=== PATIENT | female | born 1980 ===

== ENCOUNTER 2021-02-19 23:05 | Emergency (ER) | payer OTHER, SELFPAY ==
[2021-02-19 23:37] VITALS: BP 145/83; PULSE 99; RESP 20; TEMP 37.1; O2SAT 99; BMI 27.3
[2021-02-20 01:12] LABS: COVID-19 Test Positive (Negative)
--- NOTE | 2021-02-20 04:03 | ED_ITS ---
HPI - General Adult General Chief complaint: Upper Respiratory Symptoms Stated complaint: body aches, migraine Time Seen by Provider: 02/20/21 04:03 Source: family Limitations: other (Intellectual disability) History of Present Illness HPI narrative: This is a 40-year-old female who is here with a guardian. The patient has for the last few days had sore throat, fever, mild cough. She has not had any known vomiting or diarrhea. No other family member is currently hospitalized with COVID. The patient has received Giveit100 vaccine x2. Related Data Allergies Allergy/AdvReac Type Severity Reaction Status Date / Time No Known Allergies Allergy Verified 02/19/21 23:41 Review of Systems Review of Systems: Yes Other (Limited by intellectual disability) Constitutional: Constitutional: Reports fatigue and Reports fever(s) ENT: Reports as per HPI, Reports nasal discharge and Reports sore throat Cardiovascular: Cardiovascular: Denies dyspnea Respiratory: Respiratory: Reports cough and Denies dyspnea Gastrointestinal: Gastrointestinal: Denies abdominal pain, Denies diarrhea, Denies nausea and Denies vomiting Neurologic: Denies Sensory deficit (Neuro) Endocrine: Endocrine: Reports fatigue [facility] Social History Social History Advance Directives: No Advance Directives Information Provided: Yes Patient : No Physical Exam Vital Signs: Vital Signs: Last Vital Signs Temp 98.8 F 02/19/21 23:37 Pulse 99 02/19/21 23:37 Resp 20 02/19/21 23:37 BP 145/83 H 02/19/21 23:37 Pulse Ox 99 02/19/21 23:37 BMI result Body Mass Index 27.3 Const: General: cooperative, no acute distress and alert Orientation/consciousness: patient oriented x3 HENMT: Head: Yes normal to inspection Eyes: General: appearance normal, both eyes and all related structures Eyelids: Yes eyelids normal Conjunctivae: conjunctivae normal Pupils: Equal, round and reactive pupils present Neck: Neck: Yes normal visual inspection and Yes supple Chest: Chest palpation & inspection: normal inspection of the chest Resp: Effort & Inspection: normal respiratory effort Auscultation: clear to auscultation bilaterally Cardio: Rate: regular rate Rhythm: regular rhythm Heart sounds: S1 normal heart sound present, S2 normal heart sound present, no gallops, no murmurs and no rubs GI: Palpation (GI): Soft to palpation, nontender and Other GI palpation findings present (Non-distended) Auscultation: normal bowel sounds Skin: General skin exam: no rashes or lesions noted Neuro: General: patient oriented x3, no focal motor deficits and CN's II-XI intact bilaterally Cranial nerves: Yes Equal, round and reactive pupils present Cognition (Neuro): normal cognition Motor exam (neuro): 5/5 motor strength present throughout Sensory Exam: No Sensory deficit (Neuro) Extrem: General: Yes normal to inspection and Yes no pedal edema Psych: Appearance: grossly normal Affect: normal affect Medical Decision Making MDM Narrative Medical decision making narrative: Patient in no distress, has had symptoms consistent with COVID for few days, has had contacts at home who have had COVID. COVID test is positive here tonight. Patient has normal vital signs, normal pulse oximetry, clear lungs, is safe for outpatient treatment Lab Data Labs: Lab Results 02/20/21 Range/Units 00:55 COVID-19 (RICK) Positive A (Negative) COVID-19 Clin Com See Note Discharge Plan Discharge Clinical Impression: COVID-19 Patient Disposition: Home, Self-Care Instructions: COVID-19 (Coronavirus Disease 2019) (ED) Additional Instructions: Drink plenty of fluids. Use Tylenol for fever or aches. Use cough medicine such as Robitussin DM as needed for cough. Return for any new or worsened s ymptoms such as increased shortness of breath, high fever, inability to hold down fluids. Quarantine at home for 10 days. Make sure all household contacts are tested
== END 2021-02-20 04:31 | disposition home or self-care (01) ==
PROVIDERS: Emergency Provider Emergency Medicine
DX: U07.1 COVID-19 (principal); M79.10 Myalgia, unspecified site; G43.909 Migraine, unspecified, not intractable, without status migrainosus
CPT/HCPCS: 36415; 87635; 99283

== ENCOUNTER 2022-04-30 08:41 | Outpatient (REF) | payer OTHER, SELFPAY ==
[2022-04-30 08:52] LABS: MANUAL DIFF FLAG NO
[2022-04-30 09:57] LABS: Basophils Absolute Auto 0.1 X10*3/uL (0.0-0.2); Basophils Percent Auto 0.9 % (0-2); Eosinophils Absolute Auto 0.2 X10*3/uL (0.0-0.4); Eosinophils Percent Auto 2.9 % (0-4); Hematocrit 38.5 % (37.0-47.0); Hemoglobin 12.4 g/dl (12.0-16.0); Imm Gran Abs Auto 0.01 X10*3/uL (0.00-0.03); Imm Gran Pct Auto 0.1 % (0.0-0.4); Lymphocytes Absolute Auto 3.4 X10*3/uL (1.2-4.9); Lymphocytes Percent Auto 44.5 % (20-40); Mean Corpuscular HGB Conc 32.2 g/dl (31.0-35.0); Mean Corpuscular Hemoglobin 29.1 pg (27.0-33.0); Mean Corpuscular Volume 90.4 fL (80.0-98.0); Mean Platelet Volume 10.8 fL (9.4-12.3); Monocytes Absolute Auto 0.7 X10*3/uL (0.1-1.2); Monocytes Percent Auto 8.9 % (2-11); Neutrophils Absolute Auto 3.3 x10*3/uL (2.0-8.3); Neutrophils Percent Auto 42.7 % (45-73); Platelet Count 271 X10*3/uL (160-400); Red Blood Count 4.26 X10*6/uL (4.20-5.50); Red Cell Distribution Width 14.2 % (11.0-16.0); White Blood Count 7.7 X10*3/uL (4.8-10.8)
[2022-04-30 10:44] LABS: Alanine Aminotransferase 12 U/L (0-31); Albumin Level 4.3 g/dL (3.5-5.0); Alkaline Phosphatase 71 U/L (39-117); Anion Gap 13 (12-20); Aspartate Amino Transferase 24 U/L (5-31); Bilirubin Total 0.5 mg/dL (0.0-1.0); Blood Urea Nitrogen 13 mg/dL (9-16); Calcium 9.1 mg/dL (8.4-10.2); Carbon Dioxide 26 mmol/L (22-29); Chloride 105 mmol/L (96-108); Cholesterol 204 mg/dL; Estimated Glomerular Filt Rate > 60; Glucose Random 81 mg/dL (60-115); HDL Cholesterol 55 mg/dL; LDL Cholesterol Calculated 135 mg/dl; Potassium 4.6 mmol/L (3.3-5.1); Sodium 139 mmol/L (135-145); Total Protein 8.2 g/dL (6.5-8.0); Triglycerides 73 mg/dL
[2022-04-30 10:49] LABS: TSH reflex Free T4 8.37 uIU/mL (0.32-4.0)
[2022-04-30 11:30] LABS: Estimated Average Glucose 108 mg/dL; Hemoglobin A1c % 5.4 %
[2022-04-30 16:34] LABS: Free T4 (Free Thyroxine) 0.67 ng/dL (0.71-1.85)
== END 2022-04-30 08:42 | disposition home or self-care (01) ==
LOC: HO.LAB 08:41
PROVIDERS: Visit Provider Nurse Practitioner Family
DX: Z13.1 Encounter for screening for diabetes mellitus (principal); Z13.29 Encounter for screening for other suspected endocrine disorder; Z13.220 Encounter for screening for lipoid disorders; Z13.0 Encounter for screening for diseases of the blood and blood-forming organs and certain disorders involving the immune mechanism
CPT/HCPCS: 36415; 80053; 80061; 83036; 84439; 84443; 85025

== ENCOUNTER 2022-07-03 10:17 | Outpatient (REF) | payer OTHER, SELFPAY | END 2022-07-03 10:18 | disposition home or self-care (01) | LOC: HO.LNP 10:17 | PROVIDERS: PCP Nurse Practitioner Family; Visit Provider Advanced Practice Midwife | DX: Z13.89 Encounter for screening for other disorder (principal) ==

== ENCOUNTER 2022-07-03 11:17 | Outpatient (REF) | payer OTHER, SELFPAY ==
[2022-07-03 17:52] LABS: CT PCR NOT DETECTED (Not Detect.); NG PCR NOT DETECTED (Not Detect.)
[2022-07-04 13:02] LABS: BV Int Neg Control Negative (Negative); BV Int Pos Control Positive (Positive)
== END 2022-07-03 11:18 | disposition home or self-care (01) ==
LOC: HO.LAB 11:17
PROVIDERS: Advanced Practice Midwife; Visit Provider Nurse Practitioner Family
DX: Z01.419 Encounter for gynecological examination (general) (routine) without abnormal findings (principal); N85.2 Hypertrophy of uterus; R19.00 Intra-abdominal and pelvic swelling, mass and lump, unspecified site; R62.50 Unspecified lack of expected normal physiological development in childhood
CPT/HCPCS: 0353U; 87480; 87510; 87660

== ENCOUNTER 2022-08-05 11:31 | Outpatient (REF) | payer OTHER, SELFPAY ==
--- NOTE | ~2022-08-05 | US_ITS ---
EXAMINATION: US PELVIS COMPLETE CLINICAL INFORMATION: Hypertrophy of the uterus COMPARISON: None TECHNIQUE: Transabdominal imaging was performed. FINDINGS: The uterus is enlarged measuring 13.7 x 9.5 x 10.8. The endometrium was not identified sonographically. 12.8 x 8.1 x 10.0 cm transmural myoma in an exophytic 3.8 x 2.6 x 3.3 cm myoma off the left fundus of the uterus. Both ovaries are of echogenicity. The right measures 3.5 x 3.4 x 2.6 cm for a volume of 16.2 mL. The left measures 3.6 x 2.4 x 3.1 cm for a volume of 14.0 mL. There is trace left adnexal free fluid. US/US pelvic complete IMPRESSION: 1. Enlarged uterus with a 12.8 cm transmural myoma and an exophytic 3.8 cm myoma off the left fundus. 2. The endometrium was not identified sonographically. 3. Unremarkable transabdominal sonographic appearance of the ovaries. 4. Trace left adnexal free fluid, within physiologic limits of volume.
== END 2022-08-05 11:32 | disposition home or self-care (01) ==
LOC: HO.US 11:31
PROVIDERS: PCP Nurse Practitioner Family; Visit Provider Advanced Practice Midwife
DX: N85.2 Hypertrophy of uterus (principal); R19.00 Intra-abdominal and pelvic swelling, mass and lump, unspecified site
CPT/HCPCS: 76856

== ENCOUNTER 2022-10-19 11:13 | Outpatient (AMB) | payer OTHER, SELFPAY ==
[2022-10-19 11:26] VITALS: BP 120/70; BMI 28.2
--- NOTE | 2022-10-19 11:26 | A.OFFVIS_ITS ---
Intake Vital Signs 10/19/22 11:26 Height 4 ft 10 in Weight 135 lb BMI 28.2 BP 120/70 Intake Visit Reasons: US follow up Music Assistant Required: No Accompanied by: Sister Allergies No Known Allergies Allergy (Verified 10/19/22 11:27) Medication List - Last Reconciled 10/19/22 by Teresa Craig CNM levothyroxine 25 mcg PO DAILY Post menopausal: No HPI US follow up HPI Details Patient is here with her big sister today for a follow-up visit to discuss the ultrasound. Patient smiles throughout the visit and does not vocalize very much. She enjoys being on her phone she does respond to questions and inquiries by smiling. Patient's sister is acting as her guardian and volunteers that she has not been complaining of any severe discomfort with menses and she just lets her know that she has her. But it has not been a problem for her. I reviewed the findings of the pelvic ultrasound that did indeed show 12 cm fibroid. Discussed that sometimes decisions are made to go on medications that suppress menses to try an deal with the pain and discomfort of menstruation that is made worse with fibroids. But if the fibroids are not posing a difficulty for her then perhaps no intervention is necessary if they became very enlarged or became very very uncomfortable for her consideration might being made for surgical removal but that would be a challenging endeavor and would need to be made in consultation obviously with a surgeon and decision is made as to whether not care would best be rendered here or at [facility]. Additionally discussed the impossibility of obtaining a Pap smear without essentially assaulting the patient. If any surgical intervention was ever undertaken that would be an opportunity to assess for any other pathology but short of anesthesia it would be not possible to do a Pap smear. Benefits and risks of those interventions would have to be weighed.. It is not clear how much the patient understood of this discussion even though I did address it to her as well as her sister. Her sister voiced full understanding and will seek care if the patient ever becomes much more uncomfortable or if indeed exhibits discomfort more than her norm with menses. Patient was very well kept today and had excellent dental hygiene as well today which I complimented her on. [facility] Medical History Developmental delay, profound Hypothyroidism Mental and behavioral problem Family History Mother Kidney failure Diabetes Father No problems noted. Sister Fibromyalgia Brother Substance abuse Social History Household Members: Other Household Members Other:: Sister Housing: Apartment Alcohol intake: never Patient Tobacco Use Status: Never used Tobacco Cognitive needs: No Hearing needs: No Vision needs: No Female Reproductive History Menstrual control method: none Physical Exam Vital Signs: Last Vital Signs BP 120/70 10/19/22 11:26 BMI result Body Mass Index 28.2 Results Reviewed Results Reviewed: [address] [address] Ultrasound Report Signed Patient: Domonique Lantigua MR#: [id number] : 1980 Acct:[id number] Age/Sex: 41 / F ADM Date: 08/05/22 Loc: HO.US Attending Dr: Teresa Craig CNM Ordering Physician: Teresa Craig CNM Date of Service: 08/05/22 Procedure(s): US pelvic complete Accession Number(s): [id number] cc: Teresa Craig CNM~ EXAMINATION: US PELVIS COMPLETE CLINICAL INFORMATION: Hypertrophy of the uterus COMPARISON: None TECHNIQUE: Transabdominal imaging was performed. FINDINGS: The uterus is enlarged measuring 13.7 x 9.5 x 10.8. The endometrium was not identified sonographically. 12.8 x 8.1 x 10.0 cm transmural myoma in an exophytic 3.8 x 2.6 x 3.3 cm myoma off the left fundus of the uterus. Both ovaries are of echogenicity. The right measures 3.5 x 3.4 x 2.6 cm for a volume of 16.2 mL. The left measures 3.6 x 2.4 x 3.1 cm for a volume of 14.0 mL. There is trace left adnexal free fluid. US/US pelvic complete IMPRESSION: 1.? Enlarged uterus with a 12.8 cm transmural myoma and an exophytic 3.8 cm myoma off the left fundus. 2.? The endometrium was not identified sonographically. 3.? Unremarkable transabdominal sonographic appearance of the ovaries. 4.? Trace left adnexal free fluid, within physiologic limits of volume. ? Dictated By: Lesia Littlejohn MD Signed By: <Electronically signed by Lesia Littleojhn MD in OV> 08/06/222046 DD/ 38 TD/TT:? Mobility Specialist: Assessment & Plan Assessment & Plan (1) Bulky or enlarged uterus: Comment: vs abdominal mass Code(s): N85.2 - Hypertrophy of uterus (2) Fibroid uterus: Comment: See note for discussion it is not causing the patient any difficulty at this time. Code(s): D25.9 - Leiomyoma of uterus, unspecified (3) Developmental delay, profound: Code(s): R62.50 - Unspecified lack of expected normal physiological development in childhood Plan Patient is here with her big sister today for a follow-up visit to discuss the ultrasound. Patient smiles throughout the visit and does not vocalize very much. She enjoys being on her phone she does respond to questions and inquiries by smiling. Patient's sister is acting as her guardian and volunteers that she has not been complaining of any severe discomfort with menses and she just lets her know that she has her. But it has not been a problem for her. I reviewed the findings of the pelvic ultrasound that did indeed show 12 cm fibroid. Discussed that sometimes decisions are made to go on medications that suppress menses to try an deal with the pain and discomfort of menstruation that is made worse with fibroids. But if the fibroids are not posing a difficulty for her then perhaps no intervention is necessary if they became very enlarged or became very very uncomfortable for her consideration might being made for surgical removal but that would be a challenging endeavor and would need to be made in consultation obviously with a surgeon and decision is made as to whether not care would best be rendered here or at [facility]. Additionally discussed the impossibility of obtaining a Pap smear without essentially assaulting the patient. If any surgical intervention was ever undertaken that would be an opportunity to assess for any other pathology but short of anesthesia it would be not possible to do a Pap smear. Benefits and risks of those interventions would have to be weighed.. It is not clear how much the patient understood of this discussion even though I did address it to her as well as her sister. Her sister voiced full understanding and will seek care if the patient ever becomes much more uncomfortable or if indeed exhibits discomfort more than her norm with menses. Patient was very well kept today and had excellent dental hygiene as well today which I complimented her on. Coding Level of Care Code Est Pt Level 3 (36469) Diagnoses Bulky or enlarged uterus N85.2 Fibroid uterus D25.9 Developmental delay, profound R62.50
== END 2022-10-19 11:54 | disposition home or self-care (01) ==
LOC: HO.HWS 11:13
PROVIDERS: PCP Nurse Practitioner Family; Visit Provider Advanced Practice Midwife
DX: N85.2 Hypertrophy of uterus (principal); D25.9 Leiomyoma of uterus, unspecified; R62.50 Unspecified lack of expected normal physiological development in childhood
CPT/HCPCS: 99213

== ENCOUNTER → 2022-10-19 11:13 | Outpatient (BNVA) | payer OTHER, SELFPAY | PROVIDERS: PCP Nurse Practitioner Family; Visit Provider Advanced Practice Midwife | DX: N85.2 Hypertrophy of uterus (principal); D25.9 Leiomyoma of uterus, unspecified; R62.50 Unspecified lack of expected normal physiological development in childhood | CPT/HCPCS: 99212 ==

== ENCOUNTER 2024-05-03 10:57 | Outpatient (AMB) | payer OTHER, SELFPAY ==
[2024-05-03 11:25] VITALS: BP 124/80; PULSE 83; O2SAT 97; BMI 27.4
--- NOTE | 2024-05-03 11:25 | MHC.PC.OV ---
Vital Signs 05/03/24 11:25 Height 4 ft 10 in Weight 131 lb BMI 27.4 BP 124/80 Blood Pressure Location Lt brachial Position Sitting Pulse 83 Pulse Source Pulse Oximeter Pulse Oximetry (%) 97 Oxygen Delivery Method Room Air Intake Visit Reasons: Transfer of care from [place] [facility] Required: No Accompanied by: Sister Allergies No Known Allergies Allergy (Verified 05/03/24 11:49) Medication List - Last Reconciled 05/03/24 by Karson Guadarrama PA-C No Known Home Meds Tobacco use date assessed: 05/03/24 Dental Screening Dental Screen Date: 05/03/24 Did you have a dental visit in the last 12 months?: No Did you have a dental problem in the last 6 months where you did not have access to dental care?: No Was dental information given to patient?: Patient declined HPI Transfer of care from [facility] Details Patient is a 43-year-old female here today for a transfer of care visit. Has not been seen since 2022. Patient has a past medical history significant for hypothyroidism, developmental delay, uterine myoma. .. Developmental delay: Lives at home with her sister whom takes care of her. She has been resistant to mammogram screening and Pap screening due to fear of harm .. Hypothyroidism: Most recent TSH elevated at 8.4. She was on thyroid medication past though has lost follow-up with PCP. Sister does report Domonique was gaining some weight on levothyroxine. Vaccines: Up-to-date with COVID vaccine, needs up-to-date tetanus vaccine-though declines today [facility] Medical History Hypothyroidism Developmental delay, profound Mental and behavioral problem Surgical History No pertinent past surgical history Family History (Updated 05/03/24 @ 11:59 by Karson Guadarrama PA-C) Mother Kidney failure Diabetes Father No problems noted. Sister Fibromyalgia TIA (transient ischemic attack) Brother Substance abuse Social History Household Members: Other Household Members Other:: Sister Housing: Apartment Alcohol intake: never Patient Tobacco Use Status: Never used Tobacco e-Cigarette/Vaping Use: Never Used Second Hand Smoke Exposure: No service: No Current occupational status: disabled Cognitive needs: No Hearing needs: No Vision needs: No Questionnaire PHQ-9 Over the last 2 weeks, how often have you been bothered by any of the following problems? 1. Little interest or pleasure in doing things: not at all 2. Feeling down, depressed, or hopeless: not at all 3. Trouble falling or staying asleep, or sleeping too much: not at all 4. Feeling tired or having little energy: not at all 5. Poor appetite or overeating: not at all 6. Feeling bad about yourself - or that you are a failure or have let yourself or your family down: not at all 7. Trouble concentrating on things, such as reading the newspaper or watching television: not at all 8. Moving or speaking so slowly that other people could have noticed. Or the opposite - being so fidgety or restless that you have been moving around a lot more than usual: not at all 9. Thoughts that you would be better off or of hurting yourself in some way: not at all Total score: 0 Depression Screening Interpretation: Negative Depression Screening Done: Yes 35980 - PHQ-9 Billing: Yes Source: Developed by Drs. Yousif Pettit, Esperanza Novak, Edenilson Bennett and colleagues, with an educational thanh from [employer]. Thrive Questionnaire Date Thrive assessed: 05/03/24 I am a: Patient What is your living situation today?: I have a steady place to live Within the past 12 months, did the food you bought not last and you didn't have the money to get more?: Never true Within the past 12 months, did you worry whether your food would run out before you got money to buy more?: Never true Do you have trouble paying for medicines?: No Do you have trouble getting transportation to medical appointments?: No Do you have trouble paying your heating and electricity bill?: No Do you have trouble taking care of your child, family member or friend?: No Do you have trouble with day-to-day activities such as bathing, preparing meals, shopping, managing finances, etc.?: No Are you currently unemployed and looking for a job?: No Are you interested in more education?: No Please select the resources that you would like help with: None Currently or been in a relationship where the following occur: No concerns reported THRIVE Score: 0 AUDIT C Alcohol Use Questionnaire (AUDIT-C) 1. How often do you have a drink containing alcohol?: Never Total Score: 0 SANDRA-7 AMB Questionnaire SANDRA-7 Date SANDRA - 7 assessed: 05/03/24 Feeling nervous, anxious, or on edge: 1 = Several days Not being able to stop or control worryin = Not at all Worrying too much about different things: 0 = Not at all Trouble relaxin = Not at all Being so restless that it is hard to sit still: 0 = Not at all Becoming easily annoyed or irritable: 0 = Not at all Feeling afraid as if something awful might happen: 0 = Not at all Total SANDRA-7 score (0-4 normal; 5-9 mild; 10-14 moderate; 15-21 severe): 1 Source: Developed by Drs. Yousif Pettit, Esperanza Novak, Edenilson Bennett and colleagues, with an educational thanh from [employer]. SANDRA-7 Assessment Billing SANDRA-7 Assessment Tool: SANDRA-7 Assessment 75868 Review of Systems Const Denies headache(s) Eyes Denies loss of vision ENT Denies vertigo, Denies dizziness, Denies headache(s) and Denies sore throat Card Denies chest pain, Denies leg edema and Denies lightheadedness Resp Denies cough, Denies hemoptysis and Denies wheezing GI Denies abdominal pain, Denies melena, Denies constipation, Denies diarrhea and Denies vomiting Denies urinary frequency, Denies dysuria and Denies urinary urgency Musc Denies arthralgias, Denies joint swelling, Denies numbness and Denies tingling Neuro Denies Abnormal speech present, Denies behavioral changes, Denies vertigo, Denies dizziness, Denies headache(s), Denies loss of vision, Denies memory loss, Denies numbness and Denies tingling Psych Denies anxiety, Denies behavioral changes, Denies depression, Denies memory loss and Denies panic attacks Ismael/Lymph Denies easy bleeding and Denies easy bruising Aller/Immun Denies wheezing Physical exam (Primary Care) Vital Signs: Last Vital Signs Pulse 83 05/03/24 11:25 BP 124/80 03/12/25 11:25 Pulse Ox 97 05/03/24 11:25 Oxygen Delivery Method Room Air 05/03/24 11:25 BMI result Body Mass Index 27.4 Tobacco/Smoking Status: Tobacco use Status Tobacco use date assessed 05/15/22 05/15/22 09:53 Patient Tobacco Use Status Never used Tobacco 05/15/22 09:53 Depression Screening Interpretation: Negative Thrive Assessment: Date of Thrive Assessment Date Thrive assessed 04/17/22 05/15/22 09:53 Currently or been in a relationship where the following occur: No concerns reported Const General: healthy appearing, no acute distress, alert and awake Nutritional Appearance: well nourished Orientation/consciousness: oriented to person, oriented to place and oriented to time HENMT Ears: TM's normal bilaterally General nose exam: Normal nasal mucous membranes and turbinates present Eyes Conjunctivae: conjunctivae normal Sclerae: sclerae normal Pupils: Equal, round and reactive pupils present Neck Neck: Yes no lymphadenopathy and Yes no JVD Thyroid: Thyroid normal Carotids: no bruits Resp Effort & Inspection: normal respiratory effort and not tachypneic Auscultation: no crackles, no rales, no rhonchi and no wheezes Cardio Rate: regular rate Rhythm: regular rhythm Heart sounds: no murmurs and normal S1 and S2 GI Palpation (GI): Soft to palpation, nontender, no hepatomegaly and no splenomegaly Auscultation: normal bowel sounds Skin General skin exam: no rashes or lesions noted and dry skin Neuro General: oriented to person, oriented to place and oriented to time Cranial nerves: Yes Equal, round and reactive pupils present Speech: No Abnormal speech present Gait exam (Neuro): Normal gait present Motor exam (neuro): no tremor noted Extrem Right upper extremity: full ROM Left upper extremity: full ROM Right lower extremity: full ROM; no edema Left lower extremity: full ROM; no edema Psych Mental Status: mental status grossly normal Speech and movement: Normal speech and movement present Affect: normal affect Attitude: cooperative Thought process: Normal thought process present Coding Level of Care Code Est Pt Level 4 (40009) Diagnoses Hypothyroidism, unspecified type E03.9 Hypothyroidism type: unspecified Developmental delay, profound R62.50 Screening for diabetes mellitus (DM) Z13.1 SANDRA (generalized anxiety disorder) F41.1 Encounter for screening mammogram for malignant neoplasm of breast Z12.31 Breast cancer screening modality: mammogram Intramural leiomyoma of uterus D25.1 Uterine leiomyoma location: intramural Additional Codes SANDRA-7 Assessment Billing - SANDRA-7 Assessment Tool: SANDRA-7 Assessment [id number] ([id number]) PHQ-9 - 97735 - PHQ-9 Billing: Yes ([id number]) Assessment & Plan Assessment & Plan (1) Hypothyroidism: Code(s): E03.9 - Hypothyroidism, unspecified Category: Medical Qualifiers: Hypothyroidism type: unspecified Qualified Code(s): E03.9 - Hypothyroidism, unspecified Plan: Has a history of hypothyroidism. Most recent TSH elevated above 8. Will recheck TSH and if elevated will consider restarting levothyroxine. (2) Developmental delay, profound: Code(s): R62.50 - Unspecified lack of expected normal physiological development in childhood Category: Medical Plan: Patient lives with her sister whom takes care of her. (3) Screening for diabetes mellitus (DM): Code(s): Z13.1 - Encounter for screening for diabetes mellitus Category: Medical Plan: As per HPI (4) SANDRA (generalized anxiety disorder): Code(s): F41.1 - Generalized anxiety disorder Category: Medical Plan: Patient does exhibit some signs of anxiety. Sister is concerned about her anxiety per mother whom was the primary caregiver head recently which has caused some increase anxiety. (5) Breast cancer screening: Code(s): Z12.39 - Encounter for other screening for malignant neoplasm of breast Category: Medical Qualifiers: Breast cancer screening modality: mammogram Qualified Code(s): Z12.31 - Encounter for screening mammogram for malignant neoplasm of breast Plan: We discussed doing breast cancer screening. Patient is apprehensive on this due to fears of harm. (6) Fibroid uterus: Comment: See note for discussion it is not causing the patient any difficulty at this time. Code(s): D25.9 - Leiomyoma of uterus, unspecified Category: Medical Qualifiers: Uterine leiomyoma location: intramural Qualified Code(s): D25.1 - Intramural leiomyoma of uterus Plan: Was followed by OBGYN here in [place]. Family reports Domonique having normal menstruations Orders: Orders TSH reflex Free T4 Today E03.9 - Hypothyroidism, unspecified Comprehensive [place]. Panel Fast Today Z13.1 - Encounter for screening for diabetes mellitus Complete Blood Count no Diff Today Z13.1 - Encounter for screening for diabetes mellitus Referrals Counseling Referral F41.1 - Generalized anxiety disorder
== END 2024-05-03 12:05 | disposition home or self-care (01) ==
LOC: HO.HMCH 10:58
PROVIDERS: PCP Nurse Practitioner Family; Visit Provider Physician Assistant
DX: E03.9 Hypothyroidism, unspecified (principal); R62.50 Unspecified lack of expected normal physiological development in childhood; Z13.1 Encounter for screening for diabetes mellitus; F41.1 Generalized anxiety disorder; Z12.31 Encounter for screening mammogram for malignant neoplasm of breast; D25.1 Intramural leiomyoma of uterus

== ENCOUNTER → 2024-05-03 10:57 | Outpatient (BNVA) | payer OTHER, SELFPAY | PROVIDERS: PCP Nurse Practitioner Family; Visit Provider Physician Assistant | DX: E03.9 Hypothyroidism, unspecified (principal); R62.50 Unspecified lack of expected normal physiological development in childhood; F41.1 Generalized anxiety disorder; D25.1 Intramural leiomyoma of uterus | CPT/HCPCS: 96127; 99212 ==

== ENCOUNTER 2024-11-02 11:04 | Outpatient (REF) | payer OTHER, SELFPAY ==
[2024-11-02 11:36] LABS: Hematocrit 36.5 % (37.0-47.0); Hemoglobin 12.0 g/dl (12.0-16.0); Mean Corpuscular HGB Conc 32.9 g/dl (31.0-35.0); Mean Corpuscular Hemoglobin 29.3 pg (27.0-33.0); Mean Corpuscular Volume 89.2 fL (80.0-98.0); NRBC Abs Auto 0.000 X10*3/uL (0.0-0.012); NRBC Pct Auto 0.0 /100WBC (0.0-0.2); Platelet Count 289 X10*3/uL (160-400); Red Blood Count 4.09 X10*6/uL (4.20-5.50); White Blood Count 7.1 X10*3/uL (4.8-10.8)
[2024-11-02 12:28] LABS: Alanine Aminotransferase 15 U/L (0-31); Albumin Level 4.6 g/dL (3.5-5.0); Alkaline Phosphatase 56 U/L (39-117); Anion Gap 10 (12-20); Aspartate Amino Transferase 22 U/L (5-31); Blood Urea Nitrogen 11 mg/dL (9-16); Calcium 9.2 mg/dL (8.4-10.2); Carbon Dioxide 27 mmol/L (22-29); Chloride 106 mmol/L (96-108); Estimated Glomerular Filt Rate > 60; Potassium 3.9 mmol/L (3.3-5.1); Sodium 139 mmol/L (135-145); Total Protein 8.7 g/dL (6.5-8.0)
[2024-11-02 13:22] LABS: Free T4 (Free Thyroxine) 0.78 ng/dL (0.71-1.85)
== END 2024-11-02 11:05 | disposition home or self-care (01) ==
LOC: HO.LAB 11:04
PROVIDERS: PCP Physician Assistant; Visit Provider Physician Assistant
DX: Z13.1 Encounter for screening for diabetes mellitus (principal); E03.9 Hypothyroidism, unspecified
CPT/HCPCS: 36415; 80053; 84439; 84443; 85027

== ENCOUNTER 2024-11-08 09:39 | Outpatient (AMB) | payer OTHER, SELFPAY ==
[2024-11-08 09:47] VITALS: BP 138/68; PULSE 73; RESP 18; TEMP 36.2; O2SAT 97; BMI 28.2
--- NOTE | 2024-11-08 09:47 | MHC.PC.OV ---
Vital Signs 11/08/24 09:47 Height 4 ft 10 in Weight 135 lb 2 oz BMI 28.2 BP 138/68 Blood Pressure Location Lt brachial Position Sitting Respiration 18 Pulse 73 Pulse Source Pulse Oximeter Temp 97.1 F Temp Source Temporal Artery Scan Pulse Oximetry (%) 97 Oxygen Delivery Method Room Air Intake Visit Reasons: Annual physical Technical Data Analyst Required: No Accompanied by: Self / Same As Patient Allergies No Known Allergies Allergy (Verified 11/08/24 09:57) Medication List - Last Reconciled 11/08/24 by MICHAEL Ferrer levothyroxine (Synthroid) 25 mcg PO DAILY 30 days Tobacco use date assessed: 11/08/24 Dental Screening Dental Screen Date: 11/08/24 Did you have a dental visit in the last 12 months?: No Did you have a dental problem in the last 6 months where you did not have access to dental care?: No Was dental information given to patient?: No HPI Annual physical HPI Details The patient is a 43-year-old female presenting for annual physical. The patient is accompanied by her sister who is her primary caregiver. The patient has developmental delay. Dentist: Not gone, she is scared to the dentist Eye: Up to date Snellen: Right: Left: Corrected vision: no STI screening: Colonoscopy:n/a Pap Smer:Reports that she did one in [place] and got afraid of doing them now mammogram: no PHQ-9: Flu:no COVID: x2 Tdap:patient declines Diet:regular Exercise: walks everyday The patient is a 43-year-old female presenting with a follow-up on lab results and ongoing health concerns. She has a history of anemia, which was noted to be mild and not requiring immediate intervention. The anemia has been stable, with no significant changes in her condition. The patient also has hypothyroidism, with recent lab results indicating elevated TSH levels. She has been prescribed thyroid medication, which she has yet to start, and a follow-up lab test is planned in six weeks to assess the effectiveness of the treatment. The patient has uterine fibroids, which have not caused significant discomfort or symptoms. There is no current plan for surgical intervention unless the fibroids become symptomatic. The patient experiences anxiety, which has been noted in her history. She has expressed concerns about attending counseling in certain areas due to discomfort with the environment, and a referral to a more suitable location is being considered. [facility] Medical History Hypothyroidism Developmental delay, profound Mental and behavioral problem Surgical History No pertinent past surgical history Family History Mother Kidney failure Diabetes Father No problems noted. Sister Fibromyalgia TIA (transient ischemic attack) Brother Substance abuse Social History Household Members: Other Household Members Other:: Sister Housing: Apartment Alcohol intake: never Patient Tobacco Use Status: Never used Tobacco e-Cigarette/Vaping Use: Never Used Second Hand Smoke Exposure: No service: No Current occupational status: disabled Cognitive needs: No Hearing needs: No Vision needs: No Questionnaire PHQ-9 Over the last 2 weeks, how often have you been bothered by any of the following problems? 1. Little interest or pleasure in doing things: not at all 2. Feeling down, depressed, or hopeless: not at all 3. Trouble falling or staying asleep, or sleeping too much: not at all 4. Feeling tired or having little energy: not at all 5. Poor appetite or overeating: not at all 6. Feeling bad about yourself - or that you are a failure or have let yourself or your family down: not at all 7. Trouble concentrating on things, such as reading the newspaper or watching television: not at all 8. Moving or speaking so slowly that other people could have noticed. Or the opposite - being so fidgety or restless that you have been moving around a lot more than usual: not at all 9. Thoughts that you would be better off or of hurting yourself in some way: not at all Total score: 0 Depression Screening Interpretation: Negative Depression Screening Done: Yes Source: Developed by Drs. Yousif Pettit, Esperanza Novak, Edenilson Bennett and colleagues, with an educational thanh from [employer]. Thrive Questionnaire Date Thrive assessed: 10/27/24 I am a: Parent/Caregiver What is your living situation today?: I have a steady place to live Within the past 12 months, did the food you bought not last and you didn't have the money to get more?: Sometimes True Within the past 12 months, did you worry whether your food would run out before you got money to buy more?: Never true Do you have trouble paying for medicines?: No Do you have trouble getting transportation to medical appointments?: No Do you have trouble paying your heating and electricity bill?: I choose not to answer this question Do you have trouble taking care of your child, family member or friend?: No Do you have trouble with day-to-day activities such as bathing, preparing meals, shopping, managing finances, etc.?: I choose not to answer this question Are you currently unemployed and looking for a job?: I choose not to answer this question Are you interested in more education?: No Please select the resources that you would like help with: None Currently or been in a relationship where the following occur: I choose not to answer THRIVE Score: 1 SANDRA-7 AMB Questionnaire SANDRA-7 Date SANDRA - 7 assessed: 05/03/24 Source: Developed by Drs. Yousif Pettit, Esperanza Novak, Edenilson Bennett and colleagues, with an educational thanh from [employer]. Review of Systems Const Details: Answers obtained from sister, has a patient is unable to give a count to most of the questions. Denies headache(s) Eyes Denies loss of vision ENT Denies vertigo, Denies dizziness, Denies headache(s) and Denies sore throat Card Denies chest pain, Denies leg edema and Denies lightheadedness Resp Denies cough, Denies hemoptysis and Denies wheezing GI Denies abdominal pain, Denies melena, Denies constipation, Denies diarrhea, Denies vomiting and Reports other (Fibroids) Denies urinary frequency, Denies dysuria and Denies urinary urgency Musc Denies arthralgias, Denies joint swelling, Denies numbness and Denies tingling Neuro Denies Abnormal speech present, Denies behavioral changes, Denies vertigo, Denies dizziness, Denies headache(s), Denies loss of vision, Denies memory loss, Denies numbness and Denies tingling Psych Reports anxiety, Denies behavioral changes, Denies depression, Denies memory loss and Denies panic attacks Ismael/Lymph Denies easy bleeding and Denies easy bruising Aller/Immun Denies wheezing Physical exam (Primary Care) Vital Signs: Last Vital Signs Temp 97.1 F 11/08/24 09:47 Pulse 73 11/08/24 09:47 Resp 18 11/08/24 09:47 BP 138/68 11/08/24 09:47 Pulse Ox 97 11/08/24 09:47 Oxygen Delivery Method Room Air 11/08/24 09:47 BMI result Body Mass Index 28.2 Tobacco/Smoking Status: Tobacco use Status Tobacco use date assessed 11/08/24 11/08/24 09:52 Patient Tobacco Use Status Never used Tobacco 11/08/24 09:52 e-Cigarette/Vaping Use Never Used 11/08/24 09:52 PHQ-9: PHQ-9 Score PHQ-9: Total score 0 11/08/24 10:32 Depression Screening Interpretation: Negative Thrive Assessment: Date of Thrive Assessment Date Thrive assessed 10/27/24 11/08/24 09:52 Currently or been in a relationship where the following occur: I choose not to answer Const General: healthy appearing, no acute distress, alert and awake Nutritional Appearance: well nourished Orientation/consciousness: oriented to person, oriented to place and oriented to time HENMT Ears: TM's normal bilaterally General nose exam: Normal nasal mucous membranes and turbinates present Eyes Conjunctivae: conjunctivae normal Sclerae: sclerae normal Pupils: Equal, round and reactive pupils present Neck Neck: Yes no lymphadenopathy and Yes no JVD Thyroid: Thyroid normal Carotids: no bruits Resp Effort & Inspection: normal respiratory effort and not tachypneic Auscultation: no crackles, no rales, no rhonchi and no wheezes Cardio Rate: regular rate Rhythm: regular rhythm Heart sounds: no murmurs and normal S1 and S2 GI Inspection: Yes distended Palpation (GI): Soft to palpation, nontender, no hepatomegaly, no splenomegaly and Palpable mass present (large fibroids) Auscultation: normal bowel sounds General: Yes no CVA tenderness Back/Spine/Pelvis Back: no CVA tenderness Skin General skin exam: no rashes or lesions noted and dry skin Neuro General: oriented to person, oriented to place and oriented to time Cranial nerves: Yes Equal, round and reactive pupils present Speech: No Abnormal speech present Gait exam (Neuro): Normal gait present Motor exam (neuro): no tremor noted Extrem Right upper extremity: full ROM Left upper extremity: full ROM Right lower extremity: full ROM; no edema Left lower extremity: full ROM; no edema Psych Mental Status: mental status grossly normal Speech and movement: Normal speech and movement present Affect: normal affect Attitude: cooperative Thought process: Normal thought process present Results Reviewed Results Reviewed: Laboratory Tests 11/02/24 11:15 WBC 7.1 RBC 4.09 L Hgb 12.0 Hct 36.5 L MCV 89.2 MCH 29.3 MCHC 32.9 RDW 14.7 Plt Count 289 MPV 9.9 Sodium 139 Potassium 3.9 Chloride 106 Carbon Dioxide 27 Anion Gap 10 L BUN 11 Creatinine 0.79 Estimated GFR > 60 Fasting Glucose 84 Calcium 9.2 Total Bilirubin 0.5 AST 22 ALT 15 Alkaline Phosphatase 56 Total Protein 8.7 H Albumin 4.6 TSH 8.86 H Free T4 0.78 Coding Level of Care Code Est Pt Prev Care 40-64y(60305) Diagnoses Annual physical exam Z00.00 Developmental delay, profound R62.50 Abdominal mass, unspecified abdominal location R19.00 Abdominal location: unspecified location Hypothyroidism, unspecified type E03.9 Hypothyroidism type: unspecified Hyperlipidemia, unspecified hyperlipidemia type E78.5 Hyperlipidemia type: unspecified SANDRA (generalized anxiety disorder) F41.1 Anemia, unspecified type D64.9 Anemia type: unspecified type Time Spent (min) 37 Assessment & Plan Assessment & Plan (1) Annual physical exam: Code(s): Z00.00 - Encounter for general adult medical examination without abnormal findings Category: Medical Plan: Preventative guidelines and recent labs reviewed with the patient and sister. Per sister, the patient had a Pap smear in the past which was traumatizing for the patient, given her mental capacity and no sexual activity it was recommended that this test to be omitted. (2) Developmental delay, profound: Code(s): R62.50 - Unspecified lack of expected normal physiological development in childhood Category: Medical Plan: The patient is able to help with her ADLs but is unable to complete complex tasks. Her sister is her primary rejoiner. (3) Abdominal mass: Comment: Versus enlarged uterus Code(s): R19.00 - Intra-abdominal and pelvic swelling, mass and lump, unspecified site Category: Medical Qualifiers: Abdominal location: unspecified location Qualified Code(s): R19.00 - Intra-abdominal and pelvic swelling, mass and lump, unspecified site Plan: The patient has a large mass in her abdomen that is widespread. 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 This was recommended to be monitored since it was not bothering the patient. If this becomes bothersome, the plan was to perform a possible surgery though would be complex/risky. (4) Hypothyroidism: Code(s): E03.9 - Hypothyroidism, unspecified Category: Medical Qualifiers: Hypothyroidism type: unspecified Qualified Code(s): E03.9 - Hypothyroidism, unspecified Plan: TSH 8.86, free T4 0.78. Patient's sister reports that they have not picked up her levothyroxine 25 mcg as yet, but we will be getting this today. Follow up thyroid function labs were ordered to be completed in 6 weeks. (5) HLD (hyperlipidemia): Code(s): E78.5 - Hyperlipidemia, unspecified Category: Medical Qualifiers: Hyperlipidemia type: unspecified Qualified Code(s): E78.5 - Hyperlipidemia, unspecified Plan: No recent lipid panel. Triglycerides 73, total cholesterol 204, LDL 135, HDL 55 on 04/30/2022. Lipid panel was ordered for the patient to complete in 6 weeks with other ordered labs as well. Reinforced low-cholesterol diet and activity as tolerated (6) SANDRA (generalized anxiety disorder): Code(s): F41.1 - Generalized anxiety disorder Category: Medical Plan: Encouraged CBT Referral placed for counseling (7) Anemia: Code(s): D64.9 - Anemia, unspecified Category: Medical Qualifiers: Anemia type: unspecified type Qualified Code(s): D64.9 - Anemia, unspecified Plan: Mildly anemic. We will continue to monitor CBC. Orders: Orders Free T4 (Free Thyroxine) 6 Weeks E03.9 - Hypothyroidism, unspecified, E78.5 - Hyperlipidemia, unspecified Lipid Panel 6 Weeks E03.9 - Hypothyroidism, unspecified, E78.5 - Hyperlipidemia, unspecified TSH reflex Free T4 6 Weeks E03.9 - Hypothyroidism, unspecified, E78.5 - Hyperlipidemia, unspecified Referrals Counseling Referral F41.9 - Anxiety disorder, unspecified
== END 2024-11-08 10:35 | disposition home or self-care (01) ==
LOC: HO.HMCH 09:39
PROVIDERS: PCP Physician Assistant
DX: Z00.00 Encounter for general adult medical examination without abnormal findings (principal); R62.50 Unspecified lack of expected normal physiological development in childhood; R19.00 Intra-abdominal and pelvic swelling, mass and lump, unspecified site; E03.9 Hypothyroidism, unspecified; E78.5 Hyperlipidemia, unspecified; F41.1 Generalized anxiety disorder; D64.9 Anemia, unspecified

== ENCOUNTER → 2024-11-08 09:39 | Outpatient (BNVA) | payer OTHER, SELFPAY | PROVIDERS: PCP Physician Assistant | DX: Z00.00 Encounter for general adult medical examination without abnormal findings (principal); R19.00 Intra-abdominal and pelvic swelling, mass and lump, unspecified site; E03.9 Hypothyroidism, unspecified; F41.9 Anxiety disorder, unspecified; E78.5 Hyperlipidemia, unspecified; F41.1 Generalized anxiety disorder; D64.9 Anemia, unspecified | CPT/HCPCS: 99396 ==

== ENCOUNTER 2025-01-26 09:48 | Outpatient (REF) | payer OTHER, SELFPAY ==
[2025-01-26 11:32] LABS: Cholesterol 208 mg/dL (<200); HDL Cholesterol 61 mg/dL (>40); Triglycerides 86 mg/dL (<150)
[2025-01-26 11:34] LABS: Free T4 (Free Thyroxine) 0.86 ng/dL (0.71-1.85)
== END 2025-01-26 09:49 | disposition home or self-care (01) ==
LOC: HO.LAB 09:48
DX: E03.9 Hypothyroidism, unspecified (principal); E78.5 Hyperlipidemia, unspecified
CPT/HCPCS: 36415; 80061; 84439; 84443